=== PATIENT | male | born 1995 | race Caucasian/White ===

== ENCOUNTER 2018-01-11 20:34 | Emergency (ER) | payer SELFPAY ==
[~2018-01-11] VITALS: Ht 182.9 cm; Wt 84.1 kg
[2018-01-11 20:39] VITALS: BP 136/91
[2018-01-11] MEDS ORDERED: FLUORESCEIN OPHTHALMIC 1 MG STRIP EACHEYE ONE (21:30)
[2018-01-11] MEDS ORDERED: PROPARACAINE OPHTH 0.5%, 15ML EACHEYE ONE (21:30)
== END 2018-01-11 21:58 | disposition home or self-care (01) ==
LOC: ED 21:45
DX: Z77.098 Contact with and (suspected) exposure to other hazardous, chiefly nonmedicinal, chemicals (principal)
CPT/HCPCS: 99282